=== PATIENT | male | born 1965 | race African-American/Black ===

== ENCOUNTER 2016-12-19 13:06 | Emergency (ER) | payer OTHER ==
[~2016-12-19] VITALS: Ht 180.3 cm; Wt 98.0 kg
[~2016-12-19 13:06] MED LIST: COUMADIN 10MG T10 M1 PO; NORCO 5-325 TA1 EACH PO; ULTRAM 50MG TAB50 MG PO; ZANTAC 150MG T150 MG PO
[2016-12-19 13:07] VITALS: BP 140/88
[2016-12-19] MEDS ORDERED: ELIQUIS2.5 MG PO (13:21)
[2016-12-19] MEDS ORDERED: NORCO 5-325 TA1 EACH PO (13:59)
[2016-12-19] MEDS ORDERED: BACTRIM DS TAB1 EACH PO (13:59)
== END 2016-12-19 14:10 | disposition home or self-care (01) ==
LOC: ER 13:06
DX: L97.329 Non-pressure chronic ulcer of left ankle with unspecified severity (principal); F10.99 Alcohol use, unspecified with unspecified alcohol-induced disorder; Z86.718 Personal history of other venous thrombosis and embolism; Z91.013 Allergy to seafood

== ENCOUNTER 2019-09-22 16:46 | Inpatient (IN) | payer OTHER ==
[~2019-09-22] VITALS: Ht 182.9 cm; Wt 97.1 kg
[~2019-09-22 16:46] MED LIST changes: +BACTRIM DS TAB1 EACH PO; +ELIQUIS2.5 MG PO
[2019-09-22 16:49] VITALS: BP 157/95
[2019-09-22 17:40] LABS: BASOPHILS 0.8 % (0.0-2.0); EOSINOPHILS 0.6 % (0.0-3.0); HEMATOCRIT 31.1 % (42.0-52.0); HEMOGLOBIN 9.4 gm/dL (14.0-18.0); LYMPHOCYTES 7.6 % (24.0-44.0); MCH 21.4 pg (26.0-34.0); MCHC 30.3 g/dL (28.0-37.0); MCV 70.8 fL (80.0-100.0); MONOCYTES 7.4 % (1.0-8.0); PLATELET COUNT 224 thou/uL (150-400); POLYS 83.6 % (36.0-66.0); RBC 4.39 mil/uL (4.50-6.00); RDW 37.7 % (10.5-14.5); WBC 8.3 thou/uL (4.0-11.0)
[2019-09-22 17:44] LABS: CALCIUM 8.3 mg/dL (8.5-10.1); CREATININE 0.9 mg/dL (0.7-1.3); POTASSIUM 3.5 mmol/L (3.5-5.1)
[2019-09-22 17:50] LABS: ALBUMIN 2.9 g/dL (3.4-5.0); TOTAL BILIRUBIN 0.5 mg/dL (0.2-1.0); TOTAL PROTEIN 7.7 g/dL (6.4-8.2)
[2019-09-22 18:08] LABS: ANISOCYTOSIS 3+; HYPOCHROMASIA 2+; MICROCYTES 1+
[2019-09-22 18:43] LABS: URINE BILIRUBIN NEGATIVE (Negative); URINE BLOOD NEGATIVE (Negative); URINE CLARITY CLEAR; URINE COLOR YELLOW; URINE GLUCOSE-RANDOM* NEGATIVE (Negative); URINE KETONES NEGATIVE (Negative); URINE LEUKOCYTES-REFLEX NEGATIVE (Negative); URINE NITRITE-REFLEX NEGATIVE (Negative); URINE PROTEIN (DIPSTICK) TRACE (Negative); URINE SPECIFIC GRAVITY >= 1.030 (1.005-1.035)
[2019-09-22] MEDS ORDERED: ENOXAPARIN100 MG/1 M SUBQ (18:46)
[2019-09-22] MEDS ORDERED: ASA81BEC PO (18:50)
[2019-09-22] MEDS ORDERED: COUMADIN 1MG TAB1 M1 PO (18:51)
[2019-09-22 20:40] LABS: INR 1.2; PROTIME 12.4 Seconds (9.3-11.4)
[2019-09-22 21:10] VITALS: BP 131/80
[2019-09-22 21:28] VITALS: BP 127/66; BP 131/80
[2019-09-22 22:06] VITALS: BP 177/98
[2019-09-23 00:06] VITALS: BP 143/89
--- NOTE | 2019-09-23 02:00 | NUR ---
ASSUMED CARE OF PT FROM ED AT 2155HRS. PT AOX4 AND LETS NEEDS BE KNOWN. PT IS UP AD LAUREN. PT WAS ORIENTED TO THE UNIT AND THE ROOM. PT WAS ABLE TO ANSWER ALL ADMISSION RELATED QUESTIONS. ASSESSMENT CHARTED. PT REPORTS ABD PAIN, AND PRN PAIN MEDS WERE PROVIDED. PT HAD HTN UPON ARRIVAL WHICH SUBSIDED BY MIDNIGHT. PT IS ON TELE RUNNING SR/ST. PT DENIES NAUSEA OR SOA. PROTONIX DRIP CONTINUED PER GI BLEED PROTOCOL. HGB STABE AT THIS TIME. PT WAS ABLE TO TO GET COMFORTABLE AND SLEEP. NO S/S OF ACUTE DISTRESS. WILL CONTINUE TO MONITOR.
[2019-09-23 04:19] VITALS: BP 130/87
[2019-09-23 06:27] LABS: MCH 21.3 pg (26.0-34.0); MCHC 30.1 g/dL (28.0-37.0); MCV 70.9 fL (80.0-100.0); RBC 4.22 mil/uL (4.50-6.00); RDW 37.3 % (10.5-14.5); WBC 6.5 thou/uL (4.0-11.0)
[2019-09-23 06:45] LABS: CALCIUM 8.3 mg/dL (8.5-10.1); CREATININE 0.8 mg/dL (0.7-1.3); POTASSIUM 3.5 mmol/L (3.5-5.1)
[2019-09-23 07:21] VITALS: BP 151/95
[2019-09-23 10:15] LABS: % SATURATION 6 % (20-39); IRON 15 ug/dL (65-175); TIBC 247 ug/dL (250-450)
--- NOTE | 2019-09-23 10:24 | NUR ---
PT ADMITTED RELATED TO BLACK STOOLS; ABD PAIN. CM REVIEWED CHART AND SPOKE WITH CARE TEAM. CM CALLED AND SPOKE WITH PT THIS MORNING. PT APPEARED TO BE A&O X4. CM ROLE INTRODUCED. PT INDICATED HE LIVES IN A HOUSE WITH HIS SPOUSE WITH 3-4 STEPS TO ENTER AND ALL NEED ON 1 LEVEL ONCE INSIDE. 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 PT INDICATED NO DME OR HH HX. PT INDICATED HE HAS AN APPOINTMENT WITH A NEW PCP AT [facility] IN [place] WITH THE PHYSICIAN WHO IS TAKING OVER FOR DR. GUNN. PT INDICATED HE IS INERESTED IN SOME HCBS THROUGH HIS MEDICAID TO ASSIST WITH LAUNDRY. CM TO PROVIDE HIM THE NUMBER TO INITIATE THOSE SERVICES UPON DC. PT ALSO INTERESTED IN LIST OF PCP'S HERE AT [facility]. CM TO PROVIDE THAT WELL. PT INDICATED HE PLANS TO RETURN HOME ONCE MEDICALLY STABLE. PT IS ON IV CEFEPIME AND ID HAS BEEN CONSULTED. CM TO FOLLOW INDICATED WITH DC PLANNING.
--- NOTE | 2019-09-23 13:02 | NUR ---
PT CARE ASSUMED AT 0700.A&Ox4. UP AT LAUREN INDEPENDENTLY IN THE ROOM. SECONDARY IV PLACED DUE TO INCOMPATABILITY OF ANTIBIOTICS PT IS RECEIVING. PAIN IS BEING MANAGED WITH ICEPACK AND MINIMAL PAIN MEDICATION. COVID TEST COMPLEETED. EGD SCHEDULED FOR TOMORROW. IV PATENT WITH NO REDNESS OR EDEMA. FLUIDS INFUSING. USES URINAL. NSR AND TACHY ON THE MONITOR. CALL LIGHT IN REACH. WILL CONTINUE TO MONITOR.
[2019-09-23 15:40] VITALS: BP 117/91
[2019-09-23 20:00] VITALS: BP 176/93
[2019-09-23 22:30] VITALS: BP 173/93
[2019-09-24 00:17] VITALS: BP 171/95
--- NOTE | 2019-09-24 04:01 | NUR ---
ASSUMED CARE OF PT AT 1900. PT IS A/O X4. BP ELEVATED. 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 GIVEN ORDERS FOR A ONE TIME DOSE OF B/P MEDICATION TO LOWER THE B/P. PT C/O PAIN. PRN PAIN MEDICATION GIVEN. DR LEVIN CAME TO ASSESS PT. NO NEW ORDERS GIVEN AT THIS TIME. PT IS NOW LAYING IN HIS BED AND APPEARS TO BE SLEEPING. CALL LIGHT IS WITHIN REACH. WILL CONTINUE TO MONITOR.
[2019-09-24 04:11] VITALS: BP 160/101
[2019-09-24 06:23] LABS: HEMATOCRIT 31.9 % (42.0-52.0); HEMOGLOBIN 9.4 gm/dL (14.0-18.0); MCH 21.2 pg (26.0-34.0); MCHC 29.6 g/dL (28.0-37.0); MCV 71.6 fL (80.0-100.0); RBC 4.45 mil/uL (4.50-6.00); RDW 36.3 % (10.5-14.5); WBC 7.9 thou/uL (4.0-11.0)
[2019-09-24 07:14] VITALS: BP 136/81
--- NOTE | 2019-09-24 10:02 | NUR ---
PT TO HAVE EGD TOMORROW NELL PT HAD BEEN ON ANTICOAGULATION.
[2019-09-24 15:45] VITALS: BP 149/100
--- NOTE | 2019-09-24 17:03 | NUR ---
Assumed patient care at 0715. Vital signs except for Blood Pressure have been WNL's. LSCTA, ABD soft and non-tender, BS x's 4. Patient has been running Sinus Rythym to Sinus Tachycardic on Telemetry. Patient has had no adverse reactions R/T Antibiotic IV Therapy. Patient had a one time dose of Hydralazine 10mg IV push at 0554 for HTN. He has complained that he has been having "headaches" with his HTN. He hasn't complained of a headache since this am. This nurse has paged Dr Gupta as his most recent blood pressure was 149/100 around 1700; will continue to try to contact Dr Gupta per this issue. As of this time, patient is asymptomatic. Both patient and his have been expressing gratitude for all staff members at this Hospital. Patient would like to continue with a PCP from this Hospital [facility] after Discharge. Received return call from Dr Gupta regarding HTN; no new orders at this time. Will continue to monitor.
[2019-09-24 21:25] VITALS: BP 138/96
--- NOTE | 2019-09-25 00:39 | NUR ---
ASSUMED CARE OF PT AT APPROXIMATELY 1900. PT IS A/O X4. REPLACED 2ND IV THAT HAD BEEN DISHCHARGED ACCIDENTLY BY PT EARLIER IN THE DAY. C/O PAIN TO LOWER RIGHT QUADRANT. PRN PAIN MEDICATION GIVEN DIRECTED. PT IS CURRENTLY SITTING UP IN HIS BED AND WATCHING TV. CALL LIGHT IS WITHIN REACH. WILL CONTINUE TO MONITOR. VSS. NO BP MEDICATIONS GIVEN HIS BP WAS WITHIN NORMAL LIMITS. HEADACHE HAS SUBSIDED.
[2019-09-25 05:46] LABS: HEMOGLOBIN 9.7 gm/dL (14.0-18.0); MCH 21.9 pg (26.0-34.0); MCHC 30.3 g/dL (28.0-37.0); MCV 72.1 fL (80.0-100.0); RBC 4.44 mil/uL (4.50-6.00); RDW 37.5 % (10.5-14.5); WBC 7.5 thou/uL (4.0-11.0)
[2019-09-25 07:26] VITALS: BP 152/99
[2019-09-25 11:33] LABS: INR 1.1; PROTIME 10.9 Seconds (9.3-11.4)
--- NOTE | 2019-09-25 12:45 | NUR ---
Assumed patient care at 0715. Vital signs stable, LSCTA, ABD soft and non-tender, BS x's 4. Patient has been NPO since midnight. He had an ECG this am therefore, all am medications were missed. Patient continues to be NPO, as he is going to have x-rays done. Dr Gaxiola has ordered a Heparin Drip, Central Line Placement and Bloodwork. This cant be started until x-rays are completed. Bill from x-ray called this nurse to inform "the tests may take one hour", and, "they may take up to six hours." IV Team contacted also, she reported that "I may not be able to get up here for a few hours." To call Labratory and renew order for APTT after Heparin Drip has been started.
--- NOTE | 2019-09-25 14:55 | NUR ---
PT HAD EGD THIS AM THEY WEREN'T ABLE TO COMPLETE IT. GI INDICATED POSSIBLE NEED FOR COLONOSCOPY SATURDAY. PT CONTINUES ON IV ABX. CARE TEAM INDICATED NO WEEKEND DC ANTICPATED. CM TO FOLLOW INDICATED WITH DC PLANNING.
[2019-09-25 15:16] VITALS: BP 169/111
[2019-09-25 20:18] VITALS: BP 154/106
[2019-09-26 00:06] VITALS: BP 150/93
[2019-09-26 02:14] LABS: HEMATOCRIT 33.7 % (42.0-52.0)
--- NOTE | 2019-09-26 02:26 | NUR ---
PATIENT AOX4 MAKES NEEDS KNOWN. PATIENT WAS ON HEPARIN APPT DONE AT 2327 WAS 66.8 NO CHANGES ON HEPARIN DRIP.NEW ORDER TO HOLD HEPARIN. PATIENT VOIDING USING URINAL. URINE IS CLEAR YELLOW.PATIENT SAYS HE FEELS BETTER THIS SHIFT.ABD PAIN CONTROLLED THIS SHIFT. NO STOOLS THIS SHIFT.PATIENT IS UP AT LAUREN. PATIENT ASLEEP AT THIS TIME BREATHING REGULAR AND UNLABOURED.
[2019-09-26 06:23] LABS: HEMOGLOBIN 9.7 gm/dL (14.0-18.0)
[2019-09-26 06:25] LABS: MCH 22.1 pg (26.0-34.0); MCHC 30.2 g/dL (28.0-37.0); MCV 73.4 fL (80.0-100.0); RBC 4.36 mil/uL (4.50-6.00); RDW 36.9 % (10.5-14.5); WBC 10.5 thou/uL (4.0-11.0)
[2019-09-26 07:24] VITALS: BP 152/94
[2019-09-26 07:24] LABS: ALBUMIN 2.7 g/dL (3.4-5.0); CALCIUM 8.5 mg/dL (8.5-10.1); CREATININE 0.9 mg/dL (0.7-1.3); PHOSPHORUS 3.1 mg/dL (2.5-4.9); POTASSIUM 3.9 mmol/L (3.5-5.1); TOTAL BILIRUBIN 0.3 mg/dL (0.2-1.0); TOTAL PROTEIN 7.4 g/dL (6.4-8.2)
[2019-09-26 11:13] LABS: HEMATOCRIT 34.5 % (42.0-52.0); HEMOGLOBIN 10.2 gm/dL (14.0-18.0)
[2019-09-26 12:37] LABS: POLYCHROMASIA OCCASIONAL
[2019-09-26 12:38] LABS: ANISOCYTOSIS 3+; HYPOCHROMASIA 2+; MICROCYTES 2+; TEARDROPS OCCASIONAL
[2019-09-26 12:39] LABS: OVALOCYTES FEW; PLATELET COUNT 215 thou/uL (150-400)
[2019-09-26 16:22] VITALS: BP 158/101
--- NOTE | 2019-09-26 16:46 | NUR ---
Assumed pt care at 7am.Pt in bed resting without c/o.Assessment completed.vss. Pt loves praying and regious talk from bible.Pt tolerated meds and diet.Dr Gaxiola here order noted.Later this afternoon,pt bp was levated and no prn meds available.Dr Gaxiola notified,order received. at bs visiting.Will continue to monitor.
[2019-09-26 18:09] LABS: HEMOGLOBIN 8.5 gm/dL (14.0-18.0)
--- NOTE | 2019-09-26 18:44 | NUR ---
PT HAS A 6 INCH PHLEB CORD RT AC VESSEL, HEATING PAD ORDERED FOR COMFORT AND VESSEL PRESERVATION
--- NOTE | 2019-09-27 05:10 | NUR ---
RECIEVED CARE OF THIS PATIENT AT 1900. PATIENT ALERT AND ORIENTED X4. UP AD LAUREN. C/O PAIN, MED GIVEN. IV PATIENT IN LFA WITH FLUIDS INFUSING. SLEPT LITTLE THIS SHIFT.
[2019-09-27 07:27] VITALS: BP 149/96
[2019-09-27 07:43] LABS: HEMATOCRIT 32.9 % (42.0-52.0); HEMOGLOBIN 10.2 gm/dL (14.0-18.0)
[2019-09-27 11:32] LABS: HEMATOCRIT 34.7 % (42.0-52.0); HEMOGLOBIN 10.4 gm/dL (14.0-18.0)
[2019-09-27 15:26] VITALS: BP 146/92
[2019-09-27 17:25] LABS: HEMATOCRIT 35.2 % (42.0-52.0); HEMOGLOBIN 10.8 gm/dL (14.0-18.0)
[2019-09-27 19:10] VITALS: BP 161/96
--- NOTE | 2019-09-27 20:37 | NUR ---
ASSUMED PT CARE BAT 0700. ALERT X ORIENTED X4. ON ROOM AIR. IV LEFT ARM.ON CLEAR LIQUID SINCE TODAY NOON AND NPO FOR PROCEDURE AFTER 0400 AM 09/27.PT UP AD LAUREN. CALL LIGHT IN REACH. FALL PRECT IN PLACE. PT WILL CALL APPROP. SHIFT REPORT GIVEN TO NIGHT NURSE.
--- NOTE | 2019-09-27 23:17 | NUR ---
ASSUMED CARE OF PT AT 1900. PT IS A/O AND IS CURRENTLY TALKING BOWEL PREP LIQUID. PT HAS HAD SEVERAL BOWEL MOVEMENTS SINCE 1900. HE IS MAKING PROGRESS BUT STOOL AT THIS TIME IS STILL DARK. PT C/O PAIN TO ABDOMEN ON THE RIGHT SIDE. PRN PAIN MEDICATION GIVEN DIRECTED. PT WILL BE NPO AT 0400 TO AWAY FOR PROCEDURE IN THE AM. CALL LIGHT IS WITHIN REACH, PT ABLE TO MAKE NEEDS KNOWN. WILL CONTINUE TO MONITOR.
[2019-09-28 00:20] VITALS: BP 137/87
[2019-09-28 06:00] VITALS: BP 161/98
[2019-09-28 06:51] VITALS: BP 180/116
[2019-09-28 11:08] LABS: ABSOLUTE NEUTROPHILS 5.3 thou/uL (1.4-8.2); EOSINOPHILS 3.6 % (0.0-3.0); HEMATOCRIT 36.5 % (42.0-52.0); HEMATOCRIT 36.8 % (42.0-52.0); HEMOGLOBIN 11.2 gm/dL (14.0-18.0); HEMOGLOBIN 11.3 gm/dL (14.0-18.0); LYMPHOCYTES 13.4 % (24.0-44.0); MCH 22.7 pg (26.0-34.0); MCHC 30.8 g/dL (28.0-37.0); MCV 73.5 fL (80.0-100.0); MONOCYTES 7.3 % (1.0-8.0); PLATELET COUNT 242 thou/uL (150-400); POLYS 74.7 % (36.0-66.0); RBC 4.96 mil/uL (4.50-6.00); RDW 37.7 % (10.5-14.5); WBC 7.1 thou/uL (4.0-11.0)
[2019-09-28 11:21] LABS: PROTIME 10.7 Seconds (9.3-11.4)
[2019-09-28 11:24] LABS: ALBUMIN 3.2 g/dL (3.4-5.0); CALCIUM 9.5 mg/dL (8.5-10.1); CREATININE 0.8 mg/dL (0.7-1.3); POTASSIUM 3.8 mmol/L (3.5-5.1); TOTAL BILIRUBIN 0.4 mg/dL (0.2-1.0); TOTAL PROTEIN 8.3 g/dL (6.4-8.2)
[2019-09-28 14:20] LABS: ANISOCYTOSIS 3+; HYPOCHROMASIA 2+; MICROCYTES 1+; POLYCHROMASIA SLIGHT
[2019-09-28 14:21] LABS: LARGE PLATELETS RARE; POIKILOCYTOSIS 1+
[2019-09-28 14:51] VITALS: BP 176/109
--- NOTE | 2019-09-28 16:17 | NUR ---
LOOKS THOUGH GI WOULD LIKE TO CONDUCT A BLEEDING SCAN AND HAVE CONSULTED [facility] FOR POSSIBLE REPAIR OF HIATAL HERNIA. PT CONTIMUES ON IV ABX WELL. CM TO FOLLOW INDICATED WITH DC PLANNING.
[2019-09-28 19:16] VITALS: BP 165/93
--- NOTE | 2019-09-28 20:40 | NUR ---
ASSUMED PT CARE AT 0700. PT ALERT X ORIENTED X 4. ON ROOM AIR. IV LF ARM NS RUNNING AT 100ML/HR. HAD BM TODAY MORNING. HAD COLONOSCOPY DONE TODAY. CALL LIGHT WITHIN REACH. PT WILL CALL APRROP. SHIFT REPORT GIVEN TO NIGHT NURSE.
[2019-09-29 06:59] LABS: PROTIME 10.6 Seconds (9.3-11.4)
[2019-09-29 07:22] VITALS: BP 158/95
--- NOTE | 2019-09-29 09:15 | NUR ---
Assess for length of stay. Admit with GIB, hiatal hernia and likely needing repair. Pt states appetite is good, no wt changes. Chooses own meals from alternative menu. Low nutrition risk
[2019-09-29 10:47] LABS: HEMATOCRIT 34.7 % (42.0-52.0); HEMOGLOBIN 10.7 gm/dL (14.0-18.0)
--- NOTE | 2019-09-29 12:06 | NUR ---
Assumed pt care at 7am.Pt in bed resting without c/o.Assessment completed.vss but elevated bp noted.Am meds given with breakfast and well tolerated.Dr Borjas here,order noted.Notified Dr Johnson's office about yesterday consult. Message left,and was told that Dr Clements will be seen pt later today.No verbal c/o from pt. Will continue to monitor.
--- NOTE | 2019-09-29 14:14 | NUR ---
SURGERY CONSULTED AND INDICATED THAT PT HAS LARGE ABDOMINAL WALL VARICOSITY. HE INDICATED THAT HE CONSULTER CARDIOVASCULAR SURGERY TO EVALUATE. SURGERY INDICATED THAT THEY WILL PLAN FOR A LAPAROSPICE REPAIR OF HIATAL HERNIA TO BE DONE AN OUTPATIENT. CM TO FOLLOW INDICATED WITH DC PLANNING.
[2019-09-29 15:12] VITALS: BP 150/96
[2019-09-29 19:26] VITALS: BP 145/90
--- NOTE | 2019-09-30 01:01 | NUR ---
ASSUMED CARE OF PT AT 1900. PT IS A/O X4. PT C/O PAIN. PRN PAIN MEDICATION GIVEN. VSS. PT IS PROGRESSING TOWARDS DC PLAN OF CARE GOALS. CALL LIGHT IS WITHIN REACH. WILL CONTINUE TO MONITOR.
[2019-09-30 07:11] VITALS: BP 161/93
[2019-09-30 08:00] VITALS: BP 161/93
--- NOTE | 2019-09-30 09:55 | HC ---
[facility] [place] [address] CONSULTATION Name: KAMERON SAMUEL Room #: 449-I ADM IN M.R.#: [id number] Admission: 09/22/19 Attend Phys: Reji Morris MD Discharge: Date of : 61 Report #: [id number] THIS REPORT FOR: cc: PERRY - No family physician/PCP PERRY - No family physician/PCP Alec Monzon MD ~ CC: PERRY physician/PCP Reji Morris DATE OF SERVICE: 09/29/2019 CONSULTATION NOTE We were asked to see the patient by Dr. Clements. HISTORY OF PRESENT ILLNESS: The patient is a 54-year-old with a long history of chronic venous disease. The patient states that he originally presented approximately 10 years ago with calf blood clot. This apparently was associated with a significant pulmonary embolism and IVC filter was placed. This was at [facility] as I mentioned approximately 10 years ago. It is not clear whether the patient continued on anticoagulation after that and/or had been evaluated for a hypercoagulable disorder. In any event, a second IVC filter was placed more proximally approximately 3 years ago. The patient also has been treated for hypercoagulable disorder, specifically antiphospholipid with Coumadin and he seems to have responded to this. The patient is able to manage his blood level at home with a home INR device. The patient was admitted on this occasion with abdominal discomfort and swelling. The patient initially tried taking ibuprofen for this, but noticed or thought he was having melena and hematuria and the patient sought admission for this complex with problems. PAST MEDICAL HISTORY: As mentioned, significant for chronic deep vein thrombosis with IVC filter placement. According to the patient, both IVC filters are in place. The patient has been treated in the past for upper GI bleed manifested by melena. The patient states he has a significant hiatal hernia and the history of pulmonary embolism. ALLERGIES: DYE AND SHELLFISH. FAMILY HISTORY: The patient states he is adopted. SOCIAL HISTORY: The patient states he had a problem with alcohol as a young adult, but has refrained from alcohol and smoking in his later adult life and is [facility] [address] [place] [address] CONSULTATION Name: KAMERON SAMUEL Room #: 449-I ADM IN .R.#: [id number] Admission: 09/22/19 Attend Phys: Reji Morris MD Discharge: Date of : 61 Report #: [id number] careful with his diet. 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 REVIEW OF SYSTEMS: GENERAL: No fever or chills. EYES: No recent vision changes. HENT: No headache, no hearing problems, no sinus problems. RESPIRATORY: The patient states he has emphysema and COPD, but this is improving and denies cough, sputum production. CARDIAC: Denies chest pain, palpitations. GASTROINTESTINAL: Mentions having melena. Denies nausea, vomiting. GENITOURINARY: States his urine has become dark with possible hematuria, but no jamin blood, burning, urgency. The patient states he has had frequent urination at night at times. MUSCULOSKELETAL: Pain in the right thigh and right flank. SKIN: No rash or infection, but notices the bulging vein in the right lower abdomen. NEUROLOGIC: No motor or sensory dysfunction. ENDOCRINE: No goiter, no tremor. PHYSICAL EXAMINATION: GENERAL: The patient is a pleasant fellow very animated, sitting in bed. VITAL SIGNS: Temperature 36.6, heart rate 63, respiratory rate 17, blood pressure 158/95, pulse ox 92 on room air. HEENT: No scleral icterus, no arcus. NECK: No mass, no bruit. CHEST: Clear to auscultation. HEART: Rhythm regular, no murmur. ABDOMEN: Soft. We do note the superficial varicosity that seems to emanate from the right groin coursing up the lateral, lower and mid quadrant. EXTREMITIES: No clubbing, cyanosis. Trace edema on the left, 1+ on right, 2+ dorsalis pedis pulses bilaterally. 2+ popliteal pulses. PSYCHIATRIC: Shows insight into problem is a wealth of information about it. Oriented x 3. ASSESSMENT: I reviewed the old CT scans. 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 I do not think there would be any contraindication to abdominal surgery for the hiatal hernia. If the vein is encountered, it could be ligated and the new collateral will develop, but ligating the collateral as an independent exercise would be futile as it is related to some sort of necessary venous collateral blood flow due to what appears to be an occluded distal inferior vena cava. It appears that the hypercoagulable order has been described as antiphospholipid [facility] [address] [place] [address] CONSULTATION Name: KAMERON SAMUEL Room #: 449-I ADM IN Luan.Ole.#: [id number] Admission: 09/22/19 Attend Phys: Reji Morris MD Discharge: Date of : 61 Report #: [id number] syndrome. The most common would be a Factor V Leiden, of course, but if this has been evaluated there would be no reason to retest the further various problems that can cause this and the patient seems to be tolerating the Coumadin well at home. I am not sure I have anything more to offer on this interesting but unfortunate patient. Thank you for the consult. <ELECTRONICALLY SIGNED> By: Alec Monzon MD 09/30/19 [id number] Alec Monzon MD /nt
[2019-09-30 10:58] LABS: HEMATOCRIT 36.3 % (42.0-52.0)
[2019-09-30 12:41] LABS: PROTIME 10.7 Seconds (9.3-11.4)
[2019-09-30 15:31] VITALS: BP 155/99
--- NOTE | 2019-09-30 16:15 | NUR ---
PT HAD BEEN ASSESSED BY CARDIOCASCULAR SURGERY YESTERDAY. AWAITING DR. IRIZARRY TO SEE PT TO DETERMINE IF SURGICAL INTERVENTION WOULD WOULD BE DONE ON IMPATIENT OR OP BASIS. CM AWAITING DETERMINATION. IT IS ANTICPATED THAT PT WOULD BE MEDICALLY STABLE TO DC HOME TO SELF CARE ONCE MEDICALLY STABLE. CM FOLLOWING REGARDING DC PLANNING.
[2019-09-30 16:20] VITALS: BP 161/93
[2019-09-30 20:00] VITALS: BP 147/98
--- NOTE | 2019-10-01 06:00 | NUR ---
Assumed pt care at 1900. A/OX4,VSS. C/o pain to RLQ medicated per EMAR with relief reported. Pt's up ad barbara w/o any problems noted. Encouraged to call for help as needed. IV saline locked LFA.
[2019-10-01 06:15] VITALS: BP 149/100
[2019-10-01 07:30] VITALS: BP 147/103
--- NOTE | 2019-10-01 08:57 | P ---
[facility] [place] [address] PROCEDURE REPORT Name: KAMERON SAMUEL Room #: 449-I ADM IN M.R.#: [id number] Admission: 09/22/19 Attend Phys: Reji Morris MD Discharge: Date of : 61 Report #: [id number] THIS REPORT FOR: cc: PERRY - No family physician/PCP PERRY - No family physician/PCP Alec Richard MD ~ CC: [facility] physician/PCP Reji Morris INPATIENT UPPER ENDOSCOPY REPORT BRIEF HISTORY: The patient is a 54-year-old male who was admitted to [facility] with multiple problems including evidence of GI bleeding. He has had melanotic stools and drop in hemoglobin. PREOPERATIVE DIAGNOSIS: Gastrointestinal bleeding. POSTOPERATIVE DIAGNOSES: 1. Pandiverticulosis coli. 2. Small internal hemorrhoids. MEDICATIONS: Deep sedation with propofol per Anesthesia. SPECIMEN: None. ESTIMATED BLOOD LOSS: None. PROCEDURE: Colonoscopy to cecum and terminal ileum. FINDINGS: Prior to propofol sedation, procedure of colonoscopy discussed with the patient as well as potential risks and its complications. He indicates he understands and desires that we proceed. DESCRIPTION OF PROCEDURE: With the patient in left lateral decubitus position, digital examination was completed, which revealed no abnormalities. Subsequently, the Olympus video colonoscope was introduced into the rectum, advanced under direct vision to the cecum. Done with minimal difficulty. The cecum was identified by the ileocecal valve and the appendiceal orifice. I was able to visualize the distal segment of terminal ileum, which was inspected and noted to be unremarkable. At that point, the scope was slowly withdrawn and careful circumferential views obtained. Upon slow withdrawal of the scope, there were noted to be some limitations of the prep. However, with extensive lavaging and suctioning, reasonably good prep was obtained. It was noted that the patient had pandiverticulosis coli. There were diverticula scattered through the colon away from the cecum to the distal sigmoid. There was no endoscopic evidence of diverticulitis. A bleeding lesion was not seen. The mucosa was within normal limits. No blood was seen. However, scattered [facility] [address] [place] [address] PROCEDURE REPORT Name: JIMMIEALIDAJAIR Room #: 449-I ADM IN M.R.#: [id number] Admission: 09/22/19 Attend Phys: Reji Morris MD Discharge: Date of : 61 Report #: [id number] throughout the colon were stool balls that had come from diverticula that were blackish in color, but again active bleeding or red blood was not seen. Vascular ectasias were not seen. As we withdrew the scope, the mucosa was normal other than the diverticular disease. A definite bleeding site was not seen. Scope was withdrawn in the rectum, no abnormalities were seen. Upon retroflexion, small hemorrhoids were seen and scope withdrawn. The patient tolerated the procedure well. DISPOSITION: The patient with recent GI bleeding. Active bleeding site was not clearly identified. He does have scattered diverticula throughout the colon. A diverticular bleed in the proximal colon could result in black stools. 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 Please see upper endoscopy report for additional details. He has a very large hiatus hernia, which also could be the source of anemia. He has had evaluation in the past including small bowel capsule study, which he reports was negative. At this point, I think it would be reasonable to resume anticoagulation. Consider small bowel capsule study if needed. The patient also indicates that he would like to have the large hiatus hernia repaired. Also, if he should have further evidence of acute bleeding, a bleeding scan would be helpful to determine the site of bleeding. As for routine purposes, suggest followup colonoscopy in 10 years for colorectal screening. <ELECTRONICALLY SIGNED> By: Alec Richard MD 10/01/19 [id number] Alec Richard MD /nt
[2019-10-01 08:59] VITALS: BP 147/103
[2019-10-01 10:55] LABS: HEMATOCRIT 37.1 % (42.0-52.0); HEMOGLOBIN 11.3 gm/dL (14.0-18.0)
[2019-10-01 11:09] LABS: INR 1.1; PROTIME 11.2 Seconds (9.3-11.4)
--- NOTE | 2019-10-01 11:33 | NUR ---
Assumed pt care at 7am.Pt in bed resting without c/o.Assessment completed.vss. Pt wanted to know when his surgery time will be tomorrow.Dr Borjas here, order noted.Covid 19 test will be done this shift.No verbal c/o. Will continue to monitor.
--- NOTE | 2019-10-01 11:47 | NUR ---
DR. IRIZARRY INDICATING PLANNED SURGERY FOR HIATAL HERNIA REPAIR WITH [facility] TOMORROW Saturday10/02/19. CM TO FOLLOW INDICATED WITH DC PLANNING.
--- NOTE | 2019-10-01 15:25 | NUR ---
CARE TEAM HAD INDICATED THAT PT IS TO FOLLOW UP ON OP BASIS FOR LAP HIATAL HERNIA REPAIR. CARE TEAM INDICATED PT PT IS MEDICALLY STABLE TO DC HOME THIS DAY. PT HAD BEEN UP AD LAUREN DURING STAY. IT IS ANTICPATED THAT PT WOULD BE MEDICALLY STABLE TO DC HOME TO SELF CARE ONCE MEDICALLY STABLE. SHOULD PT NEED TRANSPORT HOME CALL [facility] AT .
[2019-10-01 15:30] VITALS: BP 148/91
[2019-10-01] MEDS ORDERED: WARFARIN SODIUM5 MG PO (16:37)
[2019-10-01] MEDS ORDERED: KEFLEX500 M1 PO (16:38)
[2019-10-01] MEDS ORDERED: AMLODIPINE BESY10 MG PO (16:39)
[2019-10-01] MEDS ORDERED: COZAAR 50 MG TA50 M1 PO (16:39)
[2019-10-01] MEDS ORDERED: HYDROCODON-ACE1 EAC7 PO (16:40)
[2019-10-01] MEDS ORDERED: PANTOPRAZOLE SO40 M1 PO (16:40)
[2019-10-01] MEDS ORDERED: ENOXAPARIN100 MG/1 M SUBQ (16:43)
[2019-10-01 17:01] VITALS: BP 161/93
== END 2019-10-01 18:45 | disposition home or self-care (01) | DRG 377 ==
LOC: ER 16:46 → EROBS 19:53 → 4W 19:53
PROVIDERS: Internal Medicine; Nurse Practitioner; Nurse Practitioner Family; Physician Assistant; ADMIT Internal Medicine; ATTEND Internal Medicine
PROC: 0DJ08ZZ Inspection of Upper Intestinal Tract, Via Natural or Artificial Opening Endoscopic (ICD-10-PCS; principal; 2019-09-25)
PROC: 0DJD8ZZ Inspection of Lower Intestinal Tract, Via Natural or Artificial Opening Endoscopic (ICD-10-PCS; 2019-09-28)
DX: K57.31 Diverticulosis of large intestine without perforation or abscess with bleeding (principal); E43 Unspecified severe protein-calorie malnutrition; I82.491 Acute embolism and thrombosis of other specified deep vein of right lower extremity; L03.314 Cellulitis of groin; R65.10 Systemic inflammatory response syndrome (SIRS) of non-infectious origin without acute organ dysfunction; D68.61 Antiphospholipid syndrome; Z20.828 Contact with and (suspected) exposure to other viral communicable diseases; K64.8 Other hemorrhoids; M32.9 Systemic lupus erythematosus, unspecified; D50.9 Iron deficiency anemia, unspecified; K44.9 Diaphragmatic hernia without obstruction or gangrene; I86.8 Varicose veins of other specified sites; Z91.19 Patient's noncompliance with other medical treatment and regimen; Z86.010 Personal history of colon polyps; Z86.711 Personal history of pulmonary embolism; Z91.041 Radiographic dye allergy status; Z91.013 Allergy to seafood; Z87.891 Personal history of nicotine dependence; Z79.82 Long term (current) use of aspirin; Z79.899 Other long term (current) drug therapy; Z95.828 Presence of other vascular implants and grafts
CPT/HCPCS: 10045; 62110; 62900; 70005